=== PATIENT | female | born 1985 | race Caucasian/White ===

== ENCOUNTER 2019-12-09 12:32 | Emergency (ER) | payer MEDICAID, SELFPAY ==
[~2019-12-09] VITALS: Ht 157.5 cm; Wt 65.3 kg
[~2019-12-09 12:32] MED LIST: NO MEDS
[2019-12-09 12:48] VITALS: BP 117/74
--- NOTE | 2019-12-09 12:50 | NUR ---
PT C/O DRY COUGH AND RUNNY NOSE FOR 2 DAYS. DENIES SOB, CP, N/V/D, ABDOMINAL PAIN, SORE THROAT. PT REPORTS SHE HAS CLOSE CONTACTS WITH HER AUNT WHO WAS CONFIRMED WITH CORONAVIRUS POSITIVE YESTERDAY IN [facility] ER. PATIENT STATES PAIN OF 0/10 AT THIS TIME; VSS; PATIENT POSITIONED FOR COMFORT IN THE TENT; BED DOWN. ER MD MADE AWARE OF PT STATUS.
--- NOTE | 2019-12-09 13:10 | NUR ---
DR. HERBERT IS EVALUATING PT IN THE TENT.
--- NOTE | 2019-12-09 13:18 | NUR ---
COVID SWAB COLLECTED AND SENT TO THE LAB.
[2019-12-09 13:23] VITALS: BP 110/71
--- NOTE | 2019-12-09 13:23 | NUR ---
Patient discharged with v/s stable. Written and verbal after care instructions given and explained. Patient verbalized understanding. Ambulatory with steady gait. All questions addressed prior to discharge. Advised to follow up with PMD.
--- NOTE | 2019-12-10 13:06 | NUR ---
LAB NOTIFIED PT IS COVIG-19 POSITIVE--INFECTIOUS DISEASE WILL BE NOTIFIED
== END 2019-12-09 13:23 | disposition home or self-care (01) ==
LOC: EEVIPCON 12:32 → MED 12:32
DX: R05 Cough (principal); Z20.828 Contact with and (suspected) exposure to other viral communicable diseases
CPT/HCPCS: 36415; 99283; C9803-CS; U0003-CS

== ENCOUNTER 2019-12-16 18:43 | Emergency (ER) | payer SELFPAY ==
[~2019-12-16] VITALS: Ht 157.5 cm; Wt 67.1 kg
[2019-12-16 18:56] VITALS: BP 124/77
--- NOTE | 2019-12-16 19:01 | NUR ---
Valorie felix in EDM - 12/16/19 at 1902 by [email or web address] c/o fever and cough >1 wk hx--dm
--- NOTE | 2019-12-16 19:02 | NUR ---
c/o fever and cough >1 wk & CAN'T SLEEP AT NIGHT.hx--dm
[2019-12-16 19:06] VITALS: BP 124/77
--- NOTE | 2019-12-16 19:07 | NUR ---
Patient discharged with v/s stable. Written and verbal after care instructions given and explained. Patient alert, oriented and verbalized understanding of instructions. Ambulatory with steady gait. All questions addressed prior to discharge. ID band removed. Patient advised to follow up with PMD. Rx of zinc/azithromycin/tessalon/hydroxychloroquine given. Patient educated on indication of medication including possible reaction and side effects. Opportunity to ask questions provided and answered.
== END 2019-12-16 19:07 | disposition home or self-care (01) ==
LOC: MED 18:43 → EEVIPCON 18:43 → MED 19:07
DX: R50.9 Fever, unspecified (principal); Z20.828 Contact with and (suspected) exposure to other viral communicable diseases; E11.9 Type 2 diabetes mellitus without complications
CPT/HCPCS: 99283